=== PATIENT | female | born 1960 | race Caucasian/White ===

== ENCOUNTER 2019-01-17 12:39 | Inpatient (IN) | payer OTHER ==
[~2019-01-17] VITALS: Ht 165.1 cm; Wt 68.0 kg
[2019-01-17] VITALS (20 sets, daily range): BP systolic 78–148; BP diastolic 42–88
--- NOTE | 2019-01-17 12:42 | NUR ---
CARDILOGIST AT BEDSIDE WITH CONFIRM STEMI BY EMS PT TAKEN TO MERCHANDISING REPRESENTATIVE IMMEDIA LINUS
[2019-01-17] MEDS ORDERED: OMEPRAZOLE40 MG PO (18:23)
[2019-01-17] MEDS ORDERED: INCRUSE ELLI62.5 MCG IH (18:24)
[2019-01-17] MEDS ORDERED: AMOX TR-K CLV1 EAC4 PO (18:25)
[2019-01-17] MEDS ORDERED: MEDROL DOSPAK21 TA1 PO (18:26)
[2019-01-17] MEDS ORDERED: ALENDRONATE SOD70 MG PO (18:26)
--- NOTE | 2019-01-17 18:26 | EKG ---
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: NISREEN : 1960 Requested By: Jean Bland Order Number: [id number] MD: Armando Lowe Measurements Intervals [place] Rate: 81 P: 63 SD: 142 QRS: -75 QRSD: 108 T: -62 QT: 422 QTc: 490 Interpretive Statements Sinus rhythm Inferior infarct, age indeterminate Compared to ECG 08/16/2009 06:24:36 Myocardial infarct finding now present Electronically Signed On 01-17-2019 18:26:06 CDT by Armando Lowe [email or web address] ��������������������������������������������� <ELECTRONICALLY SIGNED> ���������������������������������������� By: Armando Lowe MD, [facility] ��������������������������������������������� 01/17/19 1826 1438 1438 Armando Lowe MD, [facility] /EPI
[2019-01-17] MEDS ORDERED: ESCITALOPRAM OX20 MG PO (18:27)
[2019-01-17] MEDS ORDERED: ADVAIR 250-501 EACH INH (18:27)
[2019-01-17] MEDS ORDERED: VENTOLIN HFA 1818 GM INH (18:28)
--- NOTE | 2019-01-17 19:13 | NUR ---
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 BELONGINGS NOTED IN CHART. REVIEWED ALL ICU GUIDELINES AND RULES WITH PT AND FAMILY.
[2019-01-18] VITALS (28 sets, daily range): BP systolic 72–96; BP diastolic 38–55
--- NOTE | 2019-01-18 02:53 | NUR ---
0245 PT HAD 8 BEAT RUN VTACH, ASYMPTOMATIC BUT BPs REMAIN SOFT AND PT ASYMPTOMATIC FROM WELL. CALL PLACED TO DR BRANDT TO NOTIFY.
--- NOTE | 2019-01-18 04:43 | NUR ---
PT CURRENTLY RESTING IN BED. ABLE TO AMBULATE TO COMMODE WITHOUT ANY DIFFICULTY. PT SB/SR ON MONITOR. PT BPs REMAIN SOFT. DR. BRANDT AWARE OF BPs AND ALSO OF PT 8 BEAT RUN VTACH, PT HAS BEEN ASYMPTOMATIC. PT RIGHT GROIN SITE REMAINS SOFT, DSG CDI. PT HAS NOT NEEDED ANYTHING FOR PAIN. PT AM LABS TO BE DRAWN AND REVIEWED.
[2019-01-18 05:57] LABS: HEMATOCRIT 34.3 % (37.0-47.0); HEMOGLOBIN 11.8 gm/dL (12.0-15.0); MCH 33.5 pg (26.0-34.0); MCHC 34.5 g/dL (28.0-37.0); MCV 97.1 fL (80.0-100.0); RBC 3.54 mil/uL (4.20-5.00); RDW 12.5 % (10.5-14.5); WBC 6.3 thou/uL (4.0-11.0)
[2019-01-18 06:10] LABS: CALCIUM 8.3 mg/dL (8.5-10.1); CREATININE 0.7 mg/dL (0.6-1.0); POTASSIUM 3.8 mmol/L (3.5-5.1); TOTAL BILIRUBIN 0.3 mg/dL (<0.1-1.0); TOTAL PROTEIN 5.6 g/dL (6.4-8.2)
[2019-01-18 06:13] LABS: TROPONIN-I 48.46 ng/mL (<0.06)
--- NOTE | 2019-01-18 08:19 | EKG ---
[address] [address] ELECTROCARDIOGRAM REPORT Name: SAEID PATEL Room #: 245-P ADM IN M.R.#: [id number] ������������������ Admission: 01/17/19 ������������������ Attend Phys: Jean Bland MD Discharge: ������������������ Date of : 60 Report #: [id number] ����������������������������������������������������������������� [id number] THIS REPORT FOR: //name// 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: RICHI : 1960 Requested By: Jean Bland Order Number: [id number] MD: Aaron Gerber Measurements Intervals [place] Rate: 64 P: 57 GA: 131 QRS: -58 QRSD: 107 T: -53 QT: 456 QTc: 471 Interpretive Statements Sinus rhythm Abnormal R-wave progression, late transition Inferior infarct, age indeterminate Baseline wander in lead(s) II,III,aVF Compared to ECG 01/17/2019 14:38:52 No significant changes Electronically Signed On 01-18-2019 8:19:22 CDT by Aaron eGrber [email or web address] ��������������������������������������������� <ELECTRONICALLY SIGNED> ���������������������������������������� By: Aaron Gerber MD ��������������������������������������������� 01/18/19818 2 2 Aaron Gerber MD /EPI
--- NOTE | 2019-01-18 13:09 | CATHLAB ---
[address] [place] [address] INVASIVE PROCEDURE REPORT Name: SAEID PATEL Room #: 245-P ADM IN .R.#: [id number] ������������� Admission: 01/17/19 ������������� Attend Phys: Jean Bland MD Discharge: ��� ������������� ��� Date of : 60 Date of Service: 01/18/19 1309 �� Report #: [id number] �������� ��������������������������������������������[id number] THIS REPORT FOR: //name// APPROVED REPORT Study performed: 01/17/2019 12:45:21 Patient Details Patient Status: ED Room #: The patient is a 58 year-old female Event Personnel Jean Bland Security Installation Technician, Neda Markham RN RN, Aron Nash, Valentine Bee Monitor Procedures Performed Left Heart Cath w/or w/o Coronaries [id number] [facility] BERNICE Revasc AMI Total/Sub Single RCA C9606 AMIREVSING Indication STEMI (>0 to less than or equal to 6 hours), Dyspnea, Chest pain Risk Factors Chronic Lung DiseaseHypercholesterolemia, Tobacco History () Procedure Narrative The Right Groin^ was infiltrated with 1% Lidocaine subcutaneous anesthesia. A PINNACLE 6FR Sheath #[id number] sheath was inserted into the RFA^. Coronary angiography was performed using coronary diagnostic catheters. The left coronary system was accessed and visualized with a jl4 catheter. The left ventricle was accessed and visualized with a PIGTAIL catheter. Left ventricular/Aortic Valve gradient assessed via catheter pullback. Left ventriculogram was performed in 30 degree projection. Closure device was deployed with a 6 Fr MYNXGRIP 6/7F #[id number]. The patient tolerated the procedure well and there were no complications associated with the procedure. There was no hematoma. Intraoperative Conscious Sedation Sedation start time: 12.49 Case end Time: 13.32 Fentanyl 50 mcg Versed 1 mg [facility] [place] [address] INVASIVE PROCEDURE REPORT Name: SAEID PATEL Room #: 245-P [facility] IN M.R.#: [id number] ������������� Admission: 01/17/19 ������������� Attend Phys: Jean Bland MD Discharge: ��� ������������� ��� Date of : 60 Date of Service: 01/18/19 1309 �� Report #: [id number] �������� ��������������������������������������������[id number] Fluoro Time: 6.25 minutes Dose: DAP 5236.00 cGycm2 636 mGy Contrast Type and Amount: Visipaque 150 ml Coronary Angiography The patient's coronary anatomy is right dominant. Diagnostic Cath Left Main There is a large caliber vessel, patent with no flow-limiting lesions. LAD There is a moderate size caliber vessel, traversing the anterior wall and terminating at the apex. There is minimal disease in the proximal segment. Diagonal 1 This is a moderate size caliber vessel, patent with no flow-limiting lesions. This supplies multiple branches as it travels down the anterolateral wall. Circumflex Patent vessel, with no flow-limiting lesions. OM1 This is a moderate size caliber vessel, with mild disease in the proximal segment, 20%. OM2 There is a patent vessel, with no flow-limiting lesions. Right Coronary There is a dominant vessel with a total occlusion in the proximal segment. Left Ventriculography The left ventricle is normal in size with decreased contractility. The left ventricular ejection fraction is estimated to be 40-45%. There is hypokinesis of the mid to basal inferior wall. Hemodynamics The aortic pressure is 122/77 mmHg with a mean of 97 mmHg. The left ventricular pressure is 104/7 mmHg with a mean of mmHg. The left ventricular end diastolic pressure is 14 mmHg. Pullback from the left ventricle to the aorta revealed no gradient across the aortic valve. Pullback from the left ventricle to the aorta revealed a mm gradient across the aortic valve. PCI Technique Lesion Anticoagulation was achieved with Angiomax. Percutaneous coronary intervention was performed on the proximal right coronary artery. The lesion stenosis prior to intervention was 100% with JONES 0 flow. A VISTA 6FR JR 4 #[id number] Guide Catheter was used to engage the ostium. A Luge Wire .014 x 182CM #[id number] Interventional Guidewire was used to cross the lesion. BALLOON DILATION [facility] [address] [place] [address] INVASIVE PROCEDURE REPORT Name: CORETTA PATELBOB Room #: 245-P [facility] IN M.R.#: [id number] ������������� Admission: 01/17/19 ������������� Attend Phys: Jean Bland MD Discharge: ��� ������������� ��� Date of : 60 Date of Service: 01/18/19 1309 �� Report #: [id number] �������� ��������������������������������������������[id number] A Balloon catheter Euphora RX 2.5 x 12 #[id number] was inserted and inflated up to 8.00atm for 13seconds. Additional Inflation: 8.00atm for 27seconds. STENT DEPLOYMENT A drug-eluting stent RESOLUTE MICHELLE RX 3.0 X 18 #[id number] was inserted and inflated up to 16.00atm for 24seconds. POST STENT DEPLOYMENT BALLOON DILATION A Balloon catheter TREK NC RX 3.25 X 15 #[id number] was inserted and inflated up to 18.00atm for 15seconds. Final angiography reveals 0 % stenosis with JONES 3 flow. Conclusion 1. Successful insertion of a drug-eluting stent into the total occlusion in the proximal RCA, with yazdanism of JONES-3 blood flow. 2. Mild disease in OM1. 3. Mild to moderate segmental LV dysfunction. 4. Recommend dual antiplatelet therapy and aggressive risk factor management. This would include complete cessation of tobacco use. ��������������������������������������������� <ELECTRONICALLY SIGNED> ���������������������������������������� By: Jean Bland MD ��������������������������������������������� 01/18/19 1309 1309 1309 Jean Bland MD /INF
--- NOTE | 2019-01-18 15:35 | 2DMMODE ---
[facility] [place] [address] [place] [address] 2 D/M-MODE ECHOCARDIOGRAM Name: JORGESAEID Room #: 245-P ADM IN M.R.#: [id number] ������������� Admission: 01/17/19 ������������� Attend Phys: Jean Bland MD Discharge: ��� ������������� ��� Date of : 60 Date of Service: 01/18/19 1535 �� Report #: [id number] �������� ��������������������������������������������[id number] THIS REPORT FOR: //name// APPROVED REPORT Study performed: 01/18/2019 14:27:35 EXAM: Comprehensive 2D, Doppler, and color-flow Echocardiogram Patient Location: ICU Room #: [facility] Status: routine BSA: 1.75 HR: 61 bpm BP: 81/45 mmHg Rhythm: NSR Other Information Study Quality: Adequate Technically limited study due to lung disease. Indications [facility]. Status post stent. 2D Dimensions RVDd: 38.40 mm IVSd: 9.40 (7-11mm) LVOT Diam: 19.78 (18-24mm) LVDd: 50.41 mm PWd: 10.09 (7-11mm) LVDs: 36.62 (25-40mm) Aortic Root: 33.94 mm Volumes Left Atrial Volume (Systole) Single Plane 4CH: 39.81 mL Single Plane 2CH: 45.50 mL LA ESV Index: 27.00 mL/m2 Aortic Valve AoV Peak Reji.: 1.41 m/s AO Peak Gr.: 7.99 mmHg LVOT Max P.98 mmHg LVOT Max V: 1.12 m/s HAVEN Vmax: 2.42 cm2 Mitral Valve E/A Ratio: 1.4 MV Decel. Time: 177.53 ms [facility] [address] [place] [address] 2 D/M-MODE ECHOCARDIOGRAM Name: CORETTA PATELBOB Room #: 245-P [facility]#: [id number] ������������� Admission: 01/17/19 ������������� Attend Phys: Jean Bland MD Discharge: ��� ������������� ��� Date of : 60 Date of Service: 01/18/19 1535 �� Report #: [id number] �������� ��������������������������������������������[id number] MV E Max Reji.: 0.72 m/s MV A Reji.: 0.51 m/s MV PHT: 51.49 ms IVRT: 73.82 ms Pulmonary Valve PV Peak Reji.: 0.99 m/s PV Peak Gr.: 3.92 mmHg Pulmonary Vein P Vein S: 0.43 m/s P Vein A: 0.27 m/s P Vein D: 0.48 m/s P Vein A Dur.: 106.1 msec P Vein S/D Ratio: 0.90 Tricuspid Valve TR Peak Reji.: 2.23 m/s RAP Estimate: 5.00 mmHg TR Peak Gr.: 19.94 mmHg PA Pressure: 25.00 mmHg Left Ventricle The left ventricle is normal size. There is hypokinesis of the inferior wall. There is normal left ventricular wall thickness. Left ventricular systolic function is mildly decreased. LVEF is 45%. Moderate diastolic dysfunction is present (pseudonormal filling). Right Ventricle The right ventricle is normal size. The right ventricular systolic function is normal. Atria The left atrium size is normal. The right atrium size is normal. Aortic Valve The aortic valve is normal in structure. Trace to mild aortic regurgitation. There is no aortic valvular stenosis. Mitral Valve The mitral valve is normal in structure. Mild mitral regurgitation. Tricuspid Valve The tricuspid valve is normal in structure. Mild tricuspid regurgitation. Estimated PAP is 25mmHg. Pulmonic Valve [facility] [address] [place] [address] 2 D/M-MODE ECHOCARDIOGRAM Name: SAEID PATEL Room #: 245-P [facility] IN ..#: [id number] ������������� Admission: 01/17/19 ������������� Attend Phys: Jean Bland MD Discharge: ��� ������������� ��� Date of : 60 Date of Service: 01/18/19 1535 �� Report #: [id number] �������� ��������������������������������������������[id number] The pulmonary valve is normal in structure. Trace pulmonic regurgitation. Great Vessels The aortic root is normal in size. The ascending aorta is normal in size. IVC is normal in size and collapses >50% with inspiration. Pericardium There is no pericardial effusion. <Conclusion> The left ventricle is normal size. There is normal left ventricular wall thickness. Left ventricular systolic function is mildly decreased. There is hypokinesis of the inferior wall. LVEF is 45%. Moderate diastolic dysfunction is present (pseudonormal filling). The right ventricle is normal size. The left atrium size is normal. The right atrium size is normal. Trace to mild aortic regurgitation. Mild mitral regurgitation. Mild tricuspid regurgitation. Estimated PAP is 25mmHg. ��������������������������������������������� <ELECTRONICALLY SIGNED> ���������������������������������������� By: Jean Bland MD ��������������������������������������������� 01/18/19 1535 1535 1535 Jean Bland MD /INF
--- NOTE | 2019-01-18 17:14 | NUR ---
PATIENT ALERT AND ORIENTED X4, NO COMPLAINTS OF PAIN. ON 2L NASAL CANNULA. SINUS RHYTHM ON LUGGER. UP WITH STANDBY ASSISTANCE. PATIENT AND FAMILY UPDATED ON THE PLAN OF CARE. NO SIGNS OF ACUTE DISTRESS NOTED AT THIS TIME. WILL CONTINUE TO MONITOR.
[2019-01-19 03:27] VITALS: BP 99/61
[2019-01-19 04:20] LABS: CALCIUM 8.4 mg/dL (8.5-10.1); CREATININE 0.6 mg/dL (0.6-1.0); HEMATOCRIT 31.9 % (37.0-47.0); HEMOGLOBIN 11.2 gm/dL (12.0-15.0); POTASSIUM 3.6 mmol/L (3.5-5.1); RBC 3.3 mil/uL (4.20-5.00); RDW 12.4 % (10.5-14.5); WBC 5.1 thou/uL (4.0-11.0)
[2019-01-19 04:29] LABS: TROPONIN-I 20.14 ng/mL (<0.06)
--- NOTE | 2019-01-19 05:50 | NUR ---
ASSUMED PT CARE AT 1900. VSS. PT A&0X4. R GROIN SITE REMAINS CDI AND SOFT UPON PALPATION, NO HEMATOMA NOTED. PT DID REPORT SOME TENDERNESS TO TOUCH AT GROIN SITE. DENIES NEED FOR PAIN MEDICINE. STOOL SOFTENER AND ALPRAZOLAM GIVEN LAST NIGHT. ASSESSMENTS ARE CHARTED. PT RESTED WELL AL NIGHT, NO COMPLAINTS OF DISTRESS, WAS PUT ON 2L NC FOR SLEEP. PT IS STABLE, STEADY ON HER FEET AND SHOULD D/C TODAY.
[2019-01-19] MEDS ORDERED: EFFIENT10 MG PO (08:59)
[2019-01-19] MEDS ORDERED: ATORVASTATIN CA40 MG PO (09:00)
[2019-01-19] MEDS ORDERED: ASPIR 8181 MG PO (09:00)
[2019-01-19 09:32] VITALS: BP 99/61
--- NOTE | 2019-01-19 09:58 | NUR ---
ASSESSMENT DOCUMENTED. PT ALERT AND ORIENTED. VSS. DENIED HAVING PAIN OR DISCOMFORT. RIGHT GROIN INCISION C/D/I. NO HEMATOMA NOTED. SEEN BY DR. BRANDT. ORDERS GIVEN TO DISCHARGE PT TO HOME. DISCHARGE INSTRUCTIONS GIVEN TO PT. PT VERBERLIZE UNDERSTANDING.
--- NOTE | 2019-01-22 08:16 | D ---
[facility] [place] [address] DISCHARGE SUMMARY Name: SAEID PATEL Room #: 218-P [facility] IN M.R.#: [id number] Admission: 01/17/19 ������������������ Attend Phys: Jean Bland MD Discharge: 01/19/19 ������������������ Date of : 60 Report #: [id number] THIS REPORT FOR: //name// CC: FAM unknown Jean Bland DATE OF SERVICE: 01/19/2019 FINAL DIAGNOSES: 1. Acute inferior wall myocardial infarction, status post coronary angioplasty. 2. Tobacco use. 3. Chronic obstructive pulmonary disease. 4. Hypercholesterolemia. 5. Gastroesophageal reflux disease. 6. Hypotension. HOSPITAL COURSE: Please see the original H and P for full details. The patient presented with acute onset of substernal chest pains. She was found to have an acute inferior wall HI by EMS out on the field. She was brought to [facility] for emergent cardiac catheterization. Please see the cardiac catheterization report for full details. The RCA had a total occlusion in the proximal segment. Angioplasty was performed with placement of a drug-eluting stent, with judaism of JONES 3 blood flow. Her blood pressure was on the low side, unable to add a beta james or BETTY inhibitor. An echo revealed EF in the 40-45% range with inferior wall hypokinesis. She has remained hemodynamically stable, ambulating on telemetry floor without any complaints. Telemetry has been unremarkable. Again, her blood pressure is on the low side, but clinically asymptomatic. She is given instructions regarding importance of maintaining dual antiplatelet therapy as well as complete smoking cessation. FINAL DISPOSITION: Aspirin 81 mg, Effient 10 mg daily, Lipitor 40 mg daily. Continue with omeprazole, Advair, Albuterol. She is given a followup appointment in 2 weeks. ��������������������������������������������� <ELECTRONICALLY SIGNED> ���������������������������������������� By: Jean Bland MD ��������������������������������������������� 01/22/19 0816 0909 1004 Jean Bland MD /nt
--- NOTE | 2019-01-22 08:16 | H ---
[facility] [place] [address] HISTORY AND PHYSICAL Name: SAEID PATEL Room #: 218-P [facility] IN M.R.#: [id number] Admission: 01/17/19 ������������������ Attend Phys: Jean Bland MD Discharge: 01/19/19 ������������������ Date of : 60 Report #: [id number] THIS REPORT FOR: //name// CC: Artie Pérez DATE OF SERVICE: 01/17/2019 INDICATION: Chest pains. HISTORY OF PRESENT ILLNESS: This is a 58-year-old female presenting with acute onset of chest pain and shortness of breath. Approximately 3 hours prior to presentation to the ER at [facility], she developed substernal chest pain radiating to the back. It also radiated down both arms, greater on the left. She felt mildly diaphoretic and dyspneic. She laid down on the ground; however, the symptoms persisted. There is no history of fever, chills, nausea or diarrhea. She denies any prior cardiac history. EMS upon arrival noted an EKG revealing ST segment elevation in the inferior leads. She was promptly brought to the ER at [facility] for further evaluation. PAST MEDICAL HISTORY: COPD, GERD. Denies any history of diabetes or hypertension. ALLERGIES: None. MEDICATIONS: Nexium and two inhalers. SOCIAL HISTORY: Chronic tobacco use, smokes 1 pack per day. FAMILY HISTORY: Negative for premature CAD. REVIEW OF SYSTEMS: A full 10-point review of systems was performed. Only the pertinent positives and negatives are described in the HPI. PHYSICAL EXAMINATION: VITAL SIGNS: Blood pressure is 105/60, heart rate is 50 beats per minute. GENERAL APPEARANCE: A well-developed, well-nourished female, in mild distress. HEENT: Normocephalic, atraumatic. Oral mucosa moist. NECK: Supple. LUNGS: CTA. CARDIAC: Regular rate and rhythm, S1, S2 positive. ABDOMEN: Soft, nontender. EXTREMITIES: No cyanosis, no edema. NEUROLOGIC: Alert and oriented x 3. ECG reveals sinus bradycardia, ST elevation in the inferior leads with reciprocal ST depressions in V2. [facility] [address] [place] [address] HISTORY AND PHYSICAL Name: SAEID PATEL Room #: 218-P [facility] IN .R.#: [id number] Admission: 01/17/19 ������������������ Attend Phys: Jean Bland MD Discharge: 01/19/19 ������������������ Date of : 60 Report #: [id number] ASSESSMENT AND PLAN: 1. Acute inferior wall myocardial infarction. The patient was treated with aspirin and heparin en route by EMS. 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 2. Chronic obstructive pulmonary disease, continue with inhalers. 3. Tobacco use, complete smoking cessation is advised. 4. Gastroesophageal reflux disease, continue Protonix. 5. Hypercholesterolemia, start statin therapy. ��������������������������������������������� <ELECTRONICALLY SIGNED> ���������������������������������������� By: Jean Bland MD ��������������������������������������������� 01/22/19 0816 1328 1338 Jean Bland MD /josiah
== END 2019-01-19 10:09 | disposition home or self-care (01) | DRG 247 ==
LOC: ER 12:39 → ICU 13:35 → 2N 01-18 18:47 → ENTRNSPT 01-19 09:54 → EDTRNSPTSTS 01-19 09:56 → 2N 01-19 10:09
PROVIDERS: ADMIT Internal Medicine Cardiovascular Disease
DX: I21.19 ST elevation (STEMI) myocardial infarction involving other coronary artery of inferior wall (principal); E78.5 Hyperlipidemia, unspecified; J45.909 Unspecified asthma, uncomplicated; K21.9 Gastro-esophageal reflux disease without esophagitis; J44.9 Chronic obstructive pulmonary disease, unspecified; E78.00 Pure hypercholesterolemia, unspecified; I95.9 Hypotension, unspecified; E11.9 Type 2 diabetes mellitus without complications; F17.210 Nicotine dependence, cigarettes, uncomplicated; Z71.6 Tobacco abuse counseling; Z79.82 Long term (current) use of aspirin; Z90.710 Acquired absence of both cervix and uterus; Z79.899 Other long term (current) drug therapy
CPT/HCPCS: 10078; 10081

== ENCOUNTER → 2021-12-19 | Outpatient (CLI) | payer OTHER ==
[~2021-12-19] MED LIST: ADVAIR 250-501 EACH INH; ALENDRONATE SOD70 MG PO; AMOX TR-K CLV1 EAC4 PO; ASPIR 8181 MG PO; ATORVASTATIN CA40 MG PO; EFFIENT10 MG PO; ESCITALOPRAM OX20 MG PO; INCRUSE ELLI62.5 MCG IH; MEDROL DOSPAK21 TA1 PO; OMEPRAZOLE40 MG PO; VENTOLIN HFA 1818 GM INH
== END ==
LOC: SJCVCIMAG 12-05 09:02
PROVIDERS: ATTEND Internal Medicine Cardiovascular Disease
DX: I07.1 Rheumatic tricuspid insufficiency (principal); I25.119 Atherosclerotic heart disease of native coronary artery with unspecified angina pectoris; F17.200 Nicotine dependence, unspecified, uncomplicated; E78.5 Hyperlipidemia, unspecified